=== PATIENT | male | born 1985 | race Caucasian/White ===

== ENCOUNTER 2017-05-09 00:18 | Emergency (ER) | payer MEDICAID ==
[~2017-05-09] VITALS: Ht 177.8 cm; Wt 93.0 kg
[2017-05-09 00:24] VITALS: BP_SYST 140
[2017-05-09] MEDS ORDERED: NACL 0.9% 1,000 ML IV ONE (00:27)
[2017-05-09] MEDS ORDERED: KETOROLAC TROMETHAMINE 30 MG VIAL IVP ONE (00:30)
[2017-05-09] MEDS ORDERED: DIPHENHYDRAMINE INJ 50 MG/ML VIAL IVP ONE ×2 (00:30→02:15)
[2017-05-09 01:12] LABS: BASOPHILS % (AUTO) 0.5 % (0.0-2.0); EOSINOPHILS # (AUTO) 0.3 K/uL (0.0-0.4); EOSINOPHILS % (AUTO) 3.5 % (0.0-4.0); HEMOGLOBIN 15.2 g/dL (14.0-18.0); LYMPHOCYTES # (AUTO) 4.7 K/uL (1.0-5.5); LYMPHOCYTES % (AUTO) 46.3 % (20.5-51.5); MEAN CORPUSCULAR HEMOGLOBIN 29 pg (27-31); MEAN CORPUSCULAR HGB CONC 34 % (32-36); MEAN CORPUSCULAR VOLUME 84 fL (79.0-98.0); MONOCYTES # (AUTO) 0.8 K/uL (0.0-1.0); NEUTROPHILS # (AUTO) 4.1 K/uL (1.8-7.7); NEUTROPHILS % (AUTO) 41.7 % (40.0-70.0); PLATELET COUNT (AUTO) 324 K/uL (130-430); RED BLOOD CELL COUNT(AUTO) 5.34 MIL/uL (4.2-6.2); RED CELL DISTRIBUTION WIDTH 12.1 % (9.0-15.0); WHITE BLOOD COUNT (AUTO) 9.9 K/uL (4.8-10.8)
[2017-05-09 01:16] LABS: CALCIUM 7.3 mg/dL (8.4-11.0); CREATININE 1.05 mg/dL (0.55-1.30)
[2017-05-09 01:17] LABS: POTASSIUM 2.6 mmol/L (3.5-5.1)
[2017-05-09 02:01] LABS: BILIRUBIN,URINE NEGATIVE (NEGATIVE); BLOOD, URINE 3+ (NEGATIVE); CLARITY/URINE CLEAR (CLEAR); COLOR,URINE YELLOW (YELLOW); GLUCOSE,URINE NEGATIVE (NEGATIVE); KETONES,URINE NEGATIVE (NEGATIVE); LEUKOCYTE ESTERASE ,URINE NEGATIVE (NEGATIVE); NITRITE, URINE NEGATIVE (NEGATIVE); PH,URINE 6.5 (5.0-8.0); PROTEIN URINE NEGATIVE (NEGATIVE); UROBILINOGEN,URINE 0.2 (0.2-1.0)
[2017-05-09 02:04] LABS: BACTERIA,URINE FEW /HPF (None Seen); RBC,URINE 20-50 /HPF (0-3); WBC,URINE 0-3 /HPF (0-3)
[2017-05-09] MEDS ORDERED: MORPHINE 4 MG/ML INJ. SYRINGE IVP ONE (02:15)
[2017-05-09] MEDS ORDERED: KCL 20 mEq in 100 mL (PREMIX) 100 ML IV ONE ×2 (02:15→02:19)
[2017-05-09] MEDS ORDERED: MORPHINE SULFATE 10 MG/ML VIAL ONE (02:15)
[2017-05-09] MEDS ORDERED: POTASSIUM CHLORIDE 20 MEQ TAB.PRT.SR PO ONE (02:15)
[2017-05-09 04:10] VITALS: BP_SYST 130
== END 2017-05-09 04:10 | disposition home or self-care (01) ==
LOC: SED 00:18
DX: N20.0 Calculus of kidney (principal); E87.6 Hypokalemia
CPT/HCPCS: 36415; 74176; 80048; 81000; 85025; 96361; 96365; 96375; 96376; 99285; J1200; J1885; J2270; J3480; J7030

== ENCOUNTER 2019-02-21 10:51 | Emergency (ER) | payer MEDICAID ==
[~2019-02-21] VITALS: Ht 177.8 cm; Wt 86.2 kg
--- NOTE | 2019-02-21 11:08 | NUR ---
Patient to ER bed 05 to gown for evaluation. Side rails up.
[2019-02-21 11:09] VITALS: BP_SYST 124
--- NOTE | 2019-02-21 11:20 | NUR ---
pt arrives from home w/ c/o left intermittent flank pain. Pt states that he has hx of kidney stones. Pt states that he has pain when getting up.
--- NOTE | 2019-02-21 11:45 | NUR ---
Dr Mccarthy at bedside examining patient
[2019-02-21] MEDS ORDERED: KETOROLAC TROMETHAMINE 60 MG/2 ML VIAL IM ONE (12:15)
[2019-02-21 13:10] VITALS: BP_SYST 124
--- NOTE | 2019-02-21 13:14 | NUR ---
Patient given written and verbal discharge instructions and verbalizes understanding. ER MD discussed with patient the results and treatment provided. Patient in stable condition. ID arm band removed. Rx of Naproxen, Tramadol and Soma given. Patient educated on pain management and to follow up with PMD. Pain Scale 2/10 tolerable for patient . Opportunity for questions provided and answered. Medication side effect fact sheet provided.
== END 2019-02-21 13:14 | disposition home or self-care (01) ==
LOC: SED 10:51
DX: S33.5XXA Sprain of ligaments of lumbar spine, initial encounter (principal); X50.9XXA Other and unspecified overexertion or strenuous movements or postures, initial encounter; Y93.89 Activity, other specified; Y92.89 Other specified places as the place of occurrence of the external cause; Y99.8 Other external cause status
CPT/HCPCS: 72100; 81002; 96372; 99283; J1885